=== PATIENT | female | born 1950 | race Caucasian/White ===

== ENCOUNTER 2018-02-07 10:43 | Outpatient (CLI) | payer OTHER ==
[~2018-02-07 10:43] MED LIST: ATIVAN1 M1; LEXAPRO5 MG; LIPITOR20 MG; PERCOCET 5/3251 TAB PO; PNEU16DI2
== END 2018-02-07 10:49 | disposition home or self-care (01) ==
LOC: RAD 10:43
DX: M81.0 Age-related osteoporosis without current pathological fracture (principal)

== ENCOUNTER 2018-09-23 10:40 | Outpatient (CLI) | payer OTHER | END 2018-09-23 10:47 | disposition home or self-care (01) | LOC: NUCLEAR 10:40 | DX: E89.0 Postprocedural hypothyroidism (principal); E04.2 Nontoxic multinodular goiter; E78.2 Mixed hyperlipidemia; M85.88 Other specified disorders of bone density and structure, other site; I48.91 Unspecified atrial fibrillation; I11.9 Hypertensive heart disease without heart failure; Z13.1 Encounter for screening for diabetes mellitus; Z13.228 Encounter for screening for other metabolic disorders; Z13.220 Encounter for screening for lipoid disorders; Z13.29 Encounter for screening for other suspected endocrine disorder; E56.8 Deficiency of other vitamins; E55.9 Vitamin D deficiency, unspecified; M81.0 Age-related osteoporosis without current pathological fracture ==

== ENCOUNTER → 2019-02-28 | Outpatient (CLI) | payer OTHER | END | disposition home or self-care (01) | LOC: TOM 10:28 | DX: J44.1 Chronic obstructive pulmonary disease with (acute) exacerbation (principal); F17.218 Nicotine dependence, cigarettes, with other nicotine-induced disorders; R91.1 Solitary pulmonary nodule ==

== ENCOUNTER 2020-06-12 15:50 | Outpatient (CLI) | payer OTHER | END 2020-06-12 15:54 | disposition home or self-care (01) | LOC: RAD 15:50 | PROVIDERS: ATTEND Internal Medicine Rheumatology | DX: M15.8 Other polyosteoarthritis (principal) ==

== ENCOUNTER 2020-07-04 13:32 | Outpatient (CLI) | payer OTHER | END 2020-07-04 13:33 | disposition home or self-care (01) | LOC: NUCLEAR 13:32 | PROVIDERS: ATTEND Internal Medicine Rheumatology | DX: M85.88 Other specified disorders of bone density and structure, other site (principal); M81.0 Age-related osteoporosis without current pathological fracture ==

== ENCOUNTER 2020-10-30 13:38 | Outpatient (CLI) | payer OTHER | END 2020-10-30 13:52 | disposition home or self-care (01) | LOC: RAD 13:38 → MAMO-SONO 15:45 | PROVIDERS: ATTEND General Practice | DX: R07.82 Intercostal pain (principal); E89.0 Postprocedural hypothyroidism; E04.2 Nontoxic multinodular goiter; E78.2 Mixed hyperlipidemia; M85.80 Other specified disorders of bone density and structure, unspecified site; I48.91 Unspecified atrial fibrillation; I11.9 Hypertensive heart disease without heart failure; Z13.1 Encounter for screening for diabetes mellitus; Z13.220 Encounter for screening for lipoid disorders; Z13.228 Encounter for screening for other metabolic disorders; E56.8 Deficiency of other vitamins; E55.9 Vitamin D deficiency, unspecified; R73.01 Impaired fasting glucose ==

== ENCOUNTER 2020-12-25 13:10 | Outpatient (CLI) | payer OTHER | END 2020-12-25 13:16 | disposition home or self-care (01) | LOC: MRI 13:10 | PROVIDERS: ATTEND Psychiatry & Neurology Neurology | DX: R41.3 Other amnesia (principal) | CPT/HCPCS: 70551 ==

== ENCOUNTER 2021-10-14 10:29 | Outpatient (CLI) | payer OTHER | END 2021-10-14 10:38 | disposition home or self-care (01) | LOC: MAMO-SONO 10:29 | PROVIDERS: ATTEND Internal Medicine | DX: N64.89 Other specified disorders of breast (principal) ==

== ENCOUNTER 2022-02-16 13:49 | Outpatient (CLI) | payer OTHER | END 2022-02-16 13:54 | disposition home or self-care (01) | LOC: RAD 13:49 | PROVIDERS: ATTEND General Practice | DX: J45.909 Unspecified asthma, uncomplicated (principal) ==

== ENCOUNTER 2022-03-13 07:09 | Outpatient (CLI) | payer OTHER | END 2022-03-13 07:10 | disposition home or self-care (01) | LOC: NUCLEAR 07:09 | PROVIDERS: ATTEND Internal Medicine | DX: I25.9 Chronic ischemic heart disease, unspecified (principal) | CPT/HCPCS: 78452; 93017; A9500 ==

== ENCOUNTER 2022-05-21 10:52 | Outpatient (CLI) | payer OTHER | END 2022-05-21 10:53 | disposition home or self-care (01) | LOC: NUCLEAR 10:52 | PROVIDERS: ATTEND Internal Medicine | DX: I73.9 Peripheral vascular disease, unspecified (principal); Z86.718 Personal history of other venous thrombosis and embolism; Z91.018 Allergy to other foods ==

== ENCOUNTER → 2022-05-22 | Outpatient (CLI) | payer OTHER | END | disposition home or self-care (01) | LOC: NUCLEAR 09:53 | PROVIDERS: ATTEND Internal Medicine | DX: I73.9 Peripheral vascular disease, unspecified (principal); Z86.718 Personal history of other venous thrombosis and embolism; Z91.018 Allergy to other foods ==

== ENCOUNTER 2022-08-06 13:21 | Outpatient (CLI) | payer OTHER | END 2022-08-06 13:28 | disposition home or self-care (01) | LOC: SONOGRAMA 13:21 | PROVIDERS: ATTEND General Practice | DX: E04.2 Nontoxic multinodular goiter (principal); E89.0 Postprocedural hypothyroidism ==

== ENCOUNTER 2022-08-21 08:00 | Outpatient (CLI) | payer OTHER | END 2022-08-21 08:05 | disposition home or self-care (01) | LOC: PPH VACUNA 08:00 | PROVIDERS: ATTEND Emergency Medicine Pediatric Emergency Medicine | DX: Z23 Encounter for immunization (principal) ==

== ENCOUNTER → 2022-10-22 | Outpatient (CLI) | payer OTHER ==
[~2022-10-22] MED LIST changes: +AMIODARONE HCL200 MG PO; +ELIQUIS5 MG PO
== END | disposition home or self-care (01) ==
LOC: TOM 11:18
DX: R22.1 Localized swelling, mass and lump, neck (principal); N18.2 Chronic kidney disease, stage 2 (mild)

== ENCOUNTER 2023-01-19 14:09 | Outpatient (CLI) | payer OTHER | END 2023-01-19 14:19 | disposition home or self-care (01) | LOC: MAMO-SONO 14:09 | PROVIDERS: ATTEND Internal Medicine | DX: Z12.31 Encounter for screening mammogram for malignant neoplasm of breast (principal); N63.0 Unspecified lump in unspecified breast ==

== ENCOUNTER 2023-05-05 14:25 | Outpatient (CLI) | payer OTHER | END 2023-05-05 14:28 | disposition home or self-care (01) | LOC: SONOGRAMA 14:25 | PROVIDERS: ATTEND Internal Medicine | DX: R31.9 Hematuria, unspecified (principal) ==

== ENCOUNTER 2023-05-24 13:29 | Outpatient (CLI) | payer OTHER | END 2023-05-24 13:48 | disposition home or self-care (01) | LOC: SONOGRAMA 13:29 | PROVIDERS: ATTEND General Practice | DX: E89.0 Postprocedural hypothyroidism (principal); E04.2 Nontoxic multinodular goiter ==

== ENCOUNTER 2023-07-12 07:36 | Outpatient (CLI) | payer OTHER | END 2023-07-12 07:38 | disposition home or self-care (01) | LOC: NUCLEAR 07:36 | PROVIDERS: ATTEND Internal Medicine | DX: I25.9 Chronic ischemic heart disease, unspecified (principal) ==

== ENCOUNTER 2023-07-27 13:30 | Outpatient (CLI) | payer OTHER | END 2023-07-27 13:35 | disposition home or self-care (01) | LOC: RAD 13:30 | PROVIDERS: ATTEND Internal Medicine Pulmonary Disease | DX: J44.1 Chronic obstructive pulmonary disease with (acute) exacerbation (principal) ==

== ENCOUNTER 2023-08-03 14:51 | Outpatient (CLI) | payer OTHER | END 2023-08-03 15:21 | disposition home or self-care (01) | LOC: TOM 14:51 | PROVIDERS: ATTEND Internal Medicine | DX: J44.1 Chronic obstructive pulmonary disease with (acute) exacerbation (principal) ==

== ENCOUNTER 2023-11-02 14:09 | Outpatient (CLI) | payer OTHER | END 2023-11-02 14:20 | disposition home or self-care (01) | LOC: TOM 14:09 | PROVIDERS: ATTEND Internal Medicine | DX: J44.1 Chronic obstructive pulmonary disease with (acute) exacerbation (principal) ==

== ENCOUNTER 2023-11-05 09:39 | Outpatient (CLI) | payer OTHER | END 2023-11-05 09:56 | disposition home or self-care (01) | LOC: TOM 09:39 | PROVIDERS: ATTEND Internal Medicine | DX: J44.1 Chronic obstructive pulmonary disease with (acute) exacerbation (principal); R10.9 Unspecified abdominal pain ==

== ENCOUNTER → 2024-02-01 08:23 | Outpatient (CLI) | payer OTHER | END | disposition home or self-care (01) | LOC: NUCLEAR 08:00 | PROVIDERS: ATTEND Internal Medicine | DX: R91.1 Solitary pulmonary nodule (principal) ==

== ENCOUNTER 2024-07-12 09:49 | Outpatient (CLI) | payer OTHER | END 2024-07-12 09:53 | disposition home or self-care (01) | LOC: TOM 09:49 | PROVIDERS: ATTEND Internal Medicine Gastroenterology | DX: K56.600 Partial intestinal obstruction, unspecified as to cause (principal); R19.5 Other fecal abnormalities; Z12.11 Encounter for screening for malignant neoplasm of colon ==

== ENCOUNTER 2024-07-13 12:26 | Outpatient (CLI) | payer OTHER | END 2024-07-13 12:39 | disposition home or self-care (01) | LOC: SONOGRAMA 12:26 | PROVIDERS: ATTEND General Practice | DX: E89.0 Postprocedural hypothyroidism (principal); E04.2 Nontoxic multinodular goiter; E78.2 Mixed hyperlipidemia; M85.80 Other specified disorders of bone density and structure, unspecified site; I48.91 Unspecified atrial fibrillation; I11.9 Hypertensive heart disease without heart failure; Z13.1 Encounter for screening for diabetes mellitus; Z13.220 Encounter for screening for lipoid disorders; Z13.228 Encounter for screening for other metabolic disorders; Z13.29 Encounter for screening for other suspected endocrine disorder; E56.8 Deficiency of other vitamins; E55.9 Vitamin D deficiency, unspecified; R73.01 Impaired fasting glucose; J45.909 Unspecified asthma, uncomplicated ==

== ENCOUNTER 2024-09-04 10:24 | Outpatient (CLI) | payer OTHER | END 2024-09-04 10:25 | disposition home or self-care (01) | LOC: SONOGRAMA 10:24 | PROVIDERS: ATTEND Pathology Anatomic Pathology & Clinical Pathology | DX: D34 Benign neoplasm of thyroid gland (principal); E07.89 Other specified disorders of thyroid; E04.2 Nontoxic multinodular goiter ==

== ENCOUNTER 2025-03-14 14:19 | Outpatient (CLI) | payer OTHER | END 2025-03-14 14:26 | disposition home or self-care (01) | LOC: MRI 14:19 | PROVIDERS: ATTEND Internal Medicine Pulmonary Disease | DX: M48.00 Spinal stenosis, site unspecified (principal); M25.531 Pain in right wrist; S99.912A Unspecified injury of left ankle, initial encounter; X58.XXXA Exposure to other specified factors, initial encounter; Y93.9 Activity, unspecified; Y92.9 Unspecified place or not applicable; Y99.9 Unspecified external cause status | CPT/HCPCS: 72148 ==

== ENCOUNTER 2025-03-16 10:33 | Emergency (ER) | payer OTHER ==
[~2025-03-16] VITALS: Ht 165.1 cm; Wt 62.1 kg
[2025-03-16] MEDS ORDERED: ORPHENADRINE CITRATE 30 MG/ML AMPUL IM ONE (11:30)
[2025-03-16] MEDS ORDERED: ACETAMINOPHEN 500 MG GEL..CAP PO ONE ×2 (11:30→12:10)
[2025-03-16] MEDS ORDERED: DEXAMETHASONE SODIUM PHOSPHATE 4 MG/ML VIAL IM ONE (11:30)
[2025-03-16] MEDS ORDERED: ORPHENADRINE CITRATE 30 MG/ML AMPUL ONE (12:09)
[2025-03-16] MEDS ORDERED: DEXAMETHASONE SODIUM PHOSPHATE 4 MG/ML VIAL ONE (12:10)
== END 2025-03-16 13:39 | disposition home or self-care (01) ==
LOC: ER 10:33
DX: S30.0XXA Contusion of lower back and pelvis, initial encounter (principal); W18.39XA Other fall on same level, initial encounter; Y93.89 Activity, other specified; Y92.89 Other specified places as the place of occurrence of the external cause; Y99.9 Unspecified external cause status; I10 Essential (primary) hypertension; F41.9 Anxiety disorder, unspecified

== ENCOUNTER 2025-06-14 12:51 | Outpatient (CLI) | payer OTHER | END 2025-06-14 12:53 | disposition home or self-care (01) | LOC: NUCLEAR 12:51 | PROVIDERS: ATTEND General Practice | DX: M81.0 Age-related osteoporosis without current pathological fracture (principal) ==

== ENCOUNTER 2025-06-14 13:34 | Outpatient (CLI) | payer OTHER | END 2025-06-14 13:36 | disposition home or self-care (01) | LOC: SONOGRAMA 13:34 | PROVIDERS: ATTEND General Practice | DX: E89.0 Postprocedural hypothyroidism (principal); E04.2 Nontoxic multinodular goiter; E78.2 Mixed hyperlipidemia; M85.80 Other specified disorders of bone density and structure, unspecified site; I48.91 Unspecified atrial fibrillation; I11.9 Hypertensive heart disease without heart failure; Z13.1 Encounter for screening for diabetes mellitus; Z13.220 Encounter for screening for lipoid disorders; Z13.29 Encounter for screening for other suspected endocrine disorder; Z13.228 Encounter for screening for other metabolic disorders; E56.8 Deficiency of other vitamins; E55.9 Vitamin D deficiency, unspecified; R73.01 Impaired fasting glucose; J45.909 Unspecified asthma, uncomplicated ==